=== PATIENT | female | born 1950 | race Caucasian/White ===

== ENCOUNTER → 2016-12-14 | Outpatient (CLI) | payer MEDICARE, OTHER ==
[~2016-12-14] MED LIST: CITALOPRAM HBR20 MG PO; HYDROCHLOROTH12.5 MG PO; MELOXICAM15 MG PO; NORCO 5-325 TA1 EACH PO; POTASSIUM CHLO10 ME2 PO; PROTONIX 40 MG40 M1 PO; VITAMIN D2000 UNI1 PO
== END ==
LOC: EMI 12-08 10:00 → CT 09:00 → US 10:15 → MRI 11:00
DX: G45.9 Transient cerebral ischemic attack, unspecified (principal); R41.3 Other amnesia; I10 Essential (primary) hypertension; R53.83 Other fatigue; R53.1 Weakness; I65.23 Occlusion and stenosis of bilateral carotid arteries
CPT/HCPCS: 70470; 93880; J7050; Q9966

== ENCOUNTER 2020-09-12 14:26 | Emergency (ER) | payer MEDICARE, OTHER ==
[2020-09-12 15:12] LABS: HEMOGLOBIN 14.1 gm/dl (12.3-15.3); RED BLOOD COUNT 4.61 M/UL (4.00-5.10); WHITE BLOOD COUNT 7.2 K/UL (4.5-11.0)
[2020-09-12] MEDS ORDERED: FLAGYL500 MG PO (19:09)
[2020-09-12] MEDS ORDERED: OMNICEF 300 MG300 MG PO (19:09)
[2020-09-12] MEDS ORDERED: ZOFRAN4 MG PO (19:09)
[2020-09-12] MEDS ORDERED: PROBIOTIC & AC1 EACH PO (19:09)
[2020-09-12 20:28] LABS: ADENOVIRUS F 40/41 Not Detected (Negative); ASTROVIRUS Not Detected (Negative); CAMPYLOBACTER Not Detected (Negative); CLOSTRIDIUM DIFFICILE TOX A/B Not Detected (Negative); CRYPTOSPORIDIUM Not Detected (Negative); E.COLI 0157 Not Detected (Negative); ENTAMOEBA HISTOLYTICA Not Detected (Negative); ENTEROAGGREGATIVE E.COLI (EAEC Not Detected (Negative); ENTEROPATHOGENIC E.COLI (EPEC) Not Detected (Negative); ENTEROTOXIGENIC E.COLI (ETEC) Not Detected (Negative); GIARDIA LAMBLIA Not Detected (Negative); NOROVIRUS GI/GII Not Detected (Negative); PLESIOMONAS SHIGELLOIDES Not Detected (Negative); ROTOVIRUS A Not Detected (Negative); SALMONELLA Not Detected (Negative); SAPOVIRUS Not Detected (Negative); SHIG/ENTEROINVAS.ECOLI (EIEC) Not Detected (Negative); SHIGA-LIK TOX.PRO.E.COLI (STEC Not Detected (Negative); VIBRIO Not Detected (Negative); VIBRIO CHOLERAE Not Detected (Negative); YERSINIA ENTEROCOLITICA Not Detected (Negative)
== END 2020-09-12 20:25 | disposition home or self-care (01) ==
LOC: ER1 14:26
PROVIDERS: Physician Assistant
DX: K52.9 Noninfective gastroenteritis and colitis, unspecified (principal); N39.0 Urinary tract infection, site not specified; Z90.49 Acquired absence of other specified parts of digestive tract; Z90.710 Acquired absence of both cervix and uterus; Z88.1 Allergy status to other antibiotic agents
CPT/HCPCS: 80053; 81001; 83690; 85025; 87507; 99284; J7040; Q9967

== ENCOUNTER → 2020-12-23 | Outpatient (CLI) | payer MEDICARE, OTHER ==
[~2020-12-23] MED LIST changes: +FLAGYL500 MG PO; +OMNICEF 300 MG300 MG PO; +PROBIOTIC & AC1 EACH PO; +ZOFRAN4 MG PO
== END ==
LOC: MAMO 09:06
DX: Z12.31 Encounter for screening mammogram for malignant neoplasm of breast (principal)
CPT/HCPCS: 77063; 77067

== ENCOUNTER → 2021-01-26 | Outpatient (CLI) | payer MEDICARE, OTHER | LOC: MAMO 12:46 | DX: R92.8 Other abnormal and inconclusive findings on diagnostic imaging of breast (principal) | CPT/HCPCS: 77065; G0279 ==

== ENCOUNTER 2021-03-06 14:00 | Emergency (ER) | payer MEDICARE, OTHER | END 2021-03-06 15:20 | disposition home or self-care (01) | LOC: ER1 14:00 | DX: S20.01XA Contusion of right breast, initial encounter (principal); M25.562 Pain in left knee; Z90.49 Acquired absence of other specified parts of digestive tract; Z95.0 Presence of cardiac pacemaker; Z88.8 Allergy status to other drugs, medicaments and biological substances; V43.52XA Car driver injured in collision with other type car in traffic accident, initial encounter; Y92.410 Unspecified street and highway as the place of occurrence of the external cause | CPT/HCPCS: 71046; 73564; 99284 ==

== ENCOUNTER → 2021-10-21 | Outpatient (CLI) | payer MEDICARE, OTHER | LOC: MAMO 10-13 14:00 | DX: R92.8 Other abnormal and inconclusive findings on diagnostic imaging of breast (principal) | CPT/HCPCS: 77065 ==

== ENCOUNTER → 2021-12-15 | Outpatient (CLI) | payer MEDICARE, OTHER | LOC: KOH-I 13:09 | DX: M15.9 Polyosteoarthritis, unspecified (principal) | CPT/HCPCS: 73562 ==

== ENCOUNTER → 2022-01-26 | Outpatient (CLI) | payer MEDICARE, OTHER | LOC: ECHO 08:30 → NM 09:00 → ECHO 09:11 | DX: Z01.810 Encounter for preprocedural cardiovascular examination (principal); I20.9 Angina pectoris, unspecified; R94.31 Abnormal electrocardiogram [ECG] [EKG]; I10 Essential (primary) hypertension; G45.9 Transient cerebral ischemic attack, unspecified; I08.3 Combined rheumatic disorders of mitral, aortic and tricuspid valves | CPT/HCPCS: ECHO; 78452; 93017; 93306; A9502; J2785 ==

== ENCOUNTER → 2022-03-21 | Outpatient (CLI) | payer MEDICARE, OTHER | LOC: HEART 5 10:14 | DX: R06.02 Shortness of breath (principal) | CPT/HCPCS: 94060; 94729 ==